=== PATIENT | female | born 1955 | race Caucasian/White ===

== ENCOUNTER 2017-07-15 06:39 | Inpatient (IN) | payer OTHER ==
[2017-07-15] MEDS ORDERED: HEPARIN 1000 UNITS/NS (A-LINE) 0 ML (06:58)
[2017-07-15] MEDS ORDERED: MIDAZOLAM 1 MG/ML 2 ML INJ (07:45)
[2017-07-15] MEDS ORDERED: PHENYLephrine (100 MCG/ML) 5ML SYG (07:56)
[2017-07-15] MEDS: HEPARIN 1000 UNITS/ML 10 ML INJ (08:52)
[2017-07-15] MEDS: BUPIVACAINE 0.5%/EPI (SDV) 30 ML INJ (08:52)
[2017-07-15] MEDS: THROMBIN 5000 UNIT VIAL (08:53)
[2017-07-15] MEDS: GELATIN SIZE 100 SPONGE (08:53)
[2017-07-15] MEDS: CEFAZOLIN 1 GM INJ (08:54)
[2017-07-15] MEDS: HEMOSTATIC MATRIX SYG ZFS (08:54)
[2017-07-15] MEDS ORDERED: METOCLOPRAMIDE 10 MG INJ IV (13:00)
[2017-07-15] MEDS ORDERED: HYDROmorphONE (0.2 MG/ML) 10ML SYG IV ×2 (13:00→17:09)
[2017-07-15] MEDS ORDERED: DIPHENHYDRAMINE 50 MG INJ IV (13:00)
[2017-07-15] MEDS ORDERED: FENTAnyl 50 MCG/ML VIAL IV (13:00)
[2017-07-15] MEDS ORDERED: FUROSEMIDE 20 MG INJ (14:45)
[2017-07-15] MEDS ORDERED: morphine 10 MG INJ (16:07)
[2017-07-15] MEDS ORDERED: ROCURONIUM 50 MG INJ (16:09)
[2017-07-15] MEDS: VANCOMYCIN 1 GM INJ (16:09)
[2017-07-15] MEDS ORDERED: PROPOFOL 20 ML (16:09)
[2017-07-15] MEDS ORDERED: LIDOCAINE 2% (SDV) 5 ML INJ (16:09)
[2017-07-15] MEDS: POLYMYXIN/BACITRACIN 1L IRRIG (16:09)
[2017-07-15] MEDS ORDERED: NEOSTIGMINE 3 MG/3 ML SYRINGE (16:10)
[2017-07-15] MEDS ORDERED: GLYCOPYRROLATE 0.4 MG INJ (16:10)
[2017-07-15] MEDS ORDERED: CEFAZOLIN 1 GM INJ (16:10)
[2017-07-15] MEDS ORDERED: ONDANSETRON 4 MG INJ ×2 (16:35→17:09)
[2017-07-15] MEDS ORDERED: FENTAnyl 50 MCG/ML VIAL (17:08)
[2017-07-15] MEDS ORDERED: MEPERIDINE 25 MG INJ (17:09)
[2017-07-15] MEDS: MEPERIDINE 25 MG INJ IV (17:22)
[2017-07-15] MEDS: ONDANSETRON 4 MG INJ IV (17:23)
[2017-07-15] MEDS: HYDROmorphONE (0.2 MG/ML) 10ML SYG IV ×4 (17:24→17:47)
[2017-07-15] MEDS ORDERED: HYDROmorphONE 0.2 MG/ML PCA (17:42)
[2017-07-15] MEDS ORDERED: HYDROCODONE/APAP (5/325) TAB PO (18:00)
[2017-07-15] MEDS ORDERED: NACL 0.9% 3 ML SYG IV (18:00)
[2017-07-15] MEDS ORDERED: NALOXONE (0.4 MG/ML) INJ IV (18:00)
[2017-07-15] MEDS ORDERED: ONDANSETRON 4 MG INJ IV (18:00)
[2017-07-15] MEDS ORDERED: PROCHLORPERAZINE 10 MG TAB PO (18:00)
[2017-07-15] MEDS ORDERED: ACETAMINOPHEN 325 MG TAB PO (18:00)
[2017-07-15] MEDS ORDERED: CEFAZOLIN 1 GM/50 ML (PMX) 50 ML IVPB (18:03)
[2017-07-15] MEDS: CEFAZOLIN 1 GM/50 ML (PMX) 50 ML IVPB ×2 (18:06→23:57)
[2017-07-15] MEDS: HYDROmorphONE 0.2 MG/ML PCA IV (18:18)
[2017-07-15] MEDS ORDERED: CYANOCOBALAMIN 1000 MCG INJ IM (19:00)
[2017-07-15] MEDS ORDERED: VITAMIN A & D 5 GM OINT PACKET TOP (19:45)
[2017-07-15] MEDS: FAMOTIDINE 20 MG TAB PO (21:42)
[2017-07-15] MEDS: ZOLPIDEM 5 MG TAB PO (22:59)
[2017-07-16] MEDS: ZOLPIDEM 5 MG TAB PO ×2 (00:14→20:26)
[2017-07-16] MEDS: CEFAZOLIN 1 GM/50 ML (PMX) 50 ML IVPB ×2 (05:07→11:59)
[2017-07-16] MEDS: CYANOCOBALAMIN 1000 MCG INJ IM (05:08)
[2017-07-16 05:31] LABS: HEMATOCRIT 30.8 % (37.0-47.0); HEMOGLOBIN 10.4 g/dl (12.0-16.0)
[2017-07-16 06:06] LABS: ANION GAP 14 (8-16); BLOOD UREA NITROGEN 23 mg/dl (7-20); CALCIUM 8.4 mg/dl (8.4-10.2); CARBON DIOXIDE 23 mmol/L (21-31); CHLORIDE 102 mmol/L (97-110); GLUCOSE 113 mg/dl (70-220); POTASSIUM 4.9 mmol/L (3.5-5.1); SODIUM 134 mmol/L (135-144)
[2017-07-16 06:21] LABS: HEPATITIS B SURFACE ANTIGEN NEGATIVE (NEGATIVE)
[2017-07-16] MEDS ORDERED: LACTATED RINGER'S 500 ML IV (06:30)
[2017-07-16] MEDS: LACTATED RINGER'S 500 ML IV ×2 (06:33→14:15)
[2017-07-16 06:38] LABS: HEPATITIS C VIRAL ANTIBODY NEGATIVE (NEGATIVE)
[2017-07-16] MEDS: HYDROmorphONE 0.2 MG/ML PCA IV (08:27)
[2017-07-16] MEDS: FOLIC ACID 1 MG TAB PO (09:19)
[2017-07-16] MEDS: PAROXETINE 10 MG TAB PO (09:19)
[2017-07-16] MEDS: FAMOTIDINE 20 MG TAB PO ×2 (09:19→20:25)
[2017-07-16] MEDS ORDERED: HYDROmorphONE 2 MG TAB PO (18:00)
[2017-07-16] MEDS: LACTATED RINGER'S 250 ML IV (19:34)
[2017-07-16] MEDS: RANITIDINE 150 MG TAB PO (20:25)
[2017-07-16] MEDS: HYDROmorphONE 2 MG TAB PO (20:28)
[2017-07-16] MEDS: morphine 2 MG INJ IV (22:41)
[2017-07-16] MEDS ORDERED: VITAMIN A & D 5 GM OINT PACKET TOP (23:03)
[2017-07-17] MEDS: HYDROmorphONE 2 MG TAB PO (02:25)
[2017-07-17] MEDS: morphine 4 MG/ML VIAL IV (03:30)
[2017-07-17 05:12] LABS: ADD MAN DIFF? NO
[2017-07-17 05:17] LABS: BASOPHILS % 0.2 % (0.0-2.0); HEMATOCRIT 26.1 % (37.0-47.0); HEMOGLOBIN 8.9 g/dl (12.0-16.0); LYMPHOCYTES # 0.6 10^3/ul (0.8-2.9); LYMPHOCYTES % 5.6 % (15.0-51.0); MEAN CORPUSCULAR HEMOGLOBIN 34.9 pg (29.0-33.0); MEAN CORPUSCULAR HGB CONC 34.1 g/dl (32.0-37.0); MEAN CORPUSCULAR VOLUME 102.4 fl (82.0-101.0); MEAN PLATELET VOLUME 10.6 fl (7.4-10.4); MONOCYTE # 1.3 10^3/ul (0.3-0.9); NEUTROPHILS % 81.6 % (39.0-77.0); PLATELET COUNT 160 10^3/UL (140-415); RED BLOOD COUNT 2.55 10^6/ul (4.20-5.40); RED CELL DISTRIBUTION WIDTH 12.8 % (11.5-14.5)
[2017-07-17 05:53] LABS: ALANINE AMINOTRANSFERASE 64 IU/L (13-69); ALBUMIN 2.7 g/dl (3.3-4.9); ALBUMIN/GLOBULIN RATIO 1.17; ALKALINE PHOSPHATASE 102 IU/L (42-121); ANION GAP 8 (8-16); ASPARTATE AMINO TRANSFERASE 113 IU/L (15-46); BILIRUBIN,INDIRECT 0.2 mg/dl (0-1.1); BILIRUBIN,TOTAL 0.2 mg/dl (0.2-1.3); BLOOD UREA NITROGEN 17 mg/dl (7-20); CALCIUM 8.3 mg/dl (8.4-10.2); CARBON DIOXIDE 27 mmol/L (21-31); CHLORIDE 107 mmol/L (97-110); CREATININE 0.97 mg/dl (0.44-1.00); GLUCOSE 119 mg/dl (70-220); POTASSIUM 4.1 mmol/L (3.5-5.1); SODIUM 138 mmol/L (135-144)
[2017-07-17 06:58] LABS: POSITIVE DIFF @See below
[2017-07-17] MEDS: PAROXETINE 10 MG TAB PO (08:59)
[2017-07-17] MEDS: CYANOCOBALAMIN 1000 MCG INJ IM (08:59)
[2017-07-17] MEDS: FOLIC ACID 1 MG TAB PO (08:59)
[2017-07-17] MEDS: RANITIDINE 150 MG TAB PO ×2 (08:59→20:06)
[2017-07-17] MEDS: FAMOTIDINE 20 MG TAB PO ×2 (08:59→20:06)
[2017-07-17] MEDS: HYDROCODONE/APAP (5/325) TAB PO ×2 (11:46→20:06)
[2017-07-17] MEDS: ZOLPIDEM 5 MG TAB PO (20:54)
[2017-07-18] MEDS: ZOLPIDEM 5 MG TAB PO (03:09)
[2017-07-18] MEDS: CYANOCOBALAMIN 1000 MCG INJ IM (09:00)
[2017-07-18] MEDS: RANITIDINE 150 MG TAB PO (09:03)
[2017-07-18] MEDS: FOLIC ACID 1 MG TAB PO (09:03)
[2017-07-18] MEDS: PAROXETINE 10 MG TAB PO (09:03)
[2017-07-18] MEDS: FAMOTIDINE 20 MG TAB PO (09:03)
[2017-07-18] MEDS: HYDROCODONE/APAP (5/325) TAB PO ×2 (09:06→15:50)
[2017-07-18] MEDS: SOD FERRIC GLUC COMPLX 125 MG in SOD CHLORIDE 0.9% 100 ML IVPB (13:37)
== END 2017-07-18 17:34 | DRG 454 ==
LOC: REC 06:39 → MS1 19:30
PROC: 0SG10A0 Fusion of 2 or more Lumbar Vertebral Joints with Interbody Fusion Device, Anterior Approach, Anterior Column, Open Approach (ICD-10-PCS; principal; 2017-07-15 07:30)
PROC: 0SG10J1 Fusion of 2 or more Lumbar Vertebral Joints with Synthetic Substitute, Posterior Approach, Posterior Column, Open Approach (ICD-10-PCS; 2017-07-15 07:30)
PROC: 0QB00ZZ Excision of Lumbar Vertebra, Open Approach (ICD-10-PCS; 2017-07-15 07:30)
PROC: 4A11X4G Monitoring of Peripheral Nervous Electrical Activity, Intraoperative, External Approach (ICD-10-PCS; 2017-07-15 07:30)
DX: M51.36 Other intervertebral disc degeneration, lumbar region (principal); N17.9 Acute kidney failure, unspecified; E66.9 Obesity, unspecified; N73.6 Female pelvic peritoneal adhesions (postinfective); M48.061 Spinal stenosis, lumbar region without neurogenic claudication; M43.16 Spondylolisthesis, lumbar region; Z68.29 Body mass index [BMI] 29.0-29.9, adult
CPT/HCPCS: 72100; 80048; 80053; 85014; 85018; 85025; 86803; 86850; 86900; 86901; 86920; 87086; 87340; 88304; 97110; 97116; 97163; 97530; J1940

== ENCOUNTER 2017-07-18 18:08 | Inpatient (IN) | payer OTHER ==
[2017-07-18] MEDS ORDERED: ACETAMINOPHEN 325 MG TAB PO (19:30)
[2017-07-18] MEDS ORDERED: HYDROmorphONE 2 MG TAB PO (19:30)
[2017-07-18] MEDS ORDERED: morphine 2 MG INJ IV (19:30)
[2017-07-18] MEDS: FAMOTIDINE 20 MG TAB PO (21:00)
[2017-07-18] MEDS: HYDROCODONE/APAP (5/325) TAB PO (21:29)
[2017-07-18] MEDS: RANITIDINE 150 MG TAB PO (21:31)
[2017-07-18] MEDS: ZOLPIDEM 5 MG TAB PO (22:10)
[2017-07-18] MEDS ORDERED: BISACODYL 10 MG SUPP PR (23:00)
[2017-07-18] MEDS ORDERED: MAGNESIUM HYDROXIDE 30ML CUP PO (23:00)
[2017-07-19 00:35] LABS: ADD UMIC YES; UR ASCORBIC ACID NEGATIVE (NEGATIVE); UR BILIRUBIN (Dip) NEGATIVE (NEGATIVE); UR BLOOD (Dip) NEGATIVE (NEGATIVE); UR CLARITY CLEAR (CLEAR); UR COLOR YELLOW (YELLOW); UR GLUCOSE (Dip) NEGATIVE (NEGATIVE); UR KETONES (Dip) NEGATIVE (NEGATIVE); UR LEUKOCYTE ESTERASE (Dip) TRACE Leu/ul (NEGATIVE); UR NITRITE (Dip) NEGATIVE (NEGATIVE); UR RBC 2 /HPF (0-5); UR SPECIFIC GRAVITY (Dip) 1.005 (1.003-1.030); UR TOTAL PROTEIN (Dip) NEGATIVE (NEGATIVE); UR UROBILINOGEN (Dip) NEGATIVE (NEGATIVE); UR WBC 2 /HPF (0-5)
[2017-07-19] MEDS: HYDROCODONE/APAP (5/325) TAB PO ×4 (02:02→20:25)
[2017-07-19] MEDS: HYDROmorphONE 2 MG TAB PO (04:21)
[2017-07-19 08:17] LABS: ADD MAN DIFF? NO
[2017-07-19 08:21] LABS: BASOPHILS % 0.3 % (0.0-2.0); EOSINOPHILS # 0.1 10^3/ul (0.0-0.5); EOSINOPHILS % 1.3 % (0.0-7.0); HEMATOCRIT 27.3 % (37.0-47.0); LYMPHOCYTES # 1.1 10^3/ul (0.8-2.9); LYMPHOCYTES % 15.2 % (15.0-51.0); MEAN CORPUSCULAR HEMOGLOBIN 34.2 pg (29.0-33.0); MEAN CORPUSCULAR VOLUME 103.8 fl (82.0-101.0); MEAN PLATELET VOLUME 10.2 fl (7.4-10.4); MONOCYTE # 0.7 10^3/ul (0.3-0.9); MONOCYTES % 10.4 % (0.0-11.0); NEUTROPHIL # 5.2 10^3/ul (1.6-7.5); NEUTROPHILS % 72.2 % (39.0-77.0); PLATELET COUNT 233 10^3/UL (140-415); RED BLOOD COUNT 2.63 10^6/ul (4.20-5.40); RED CELL DISTRIBUTION WIDTH 13.2 % (11.5-14.5)
[2017-07-19 08:21] LABS: WHITE BLOOD COUNT 7.1 10^3/ul (4.8-10.8)
[2017-07-19 08:47] LABS: ALANINE AMINOTRANSFERASE 53 IU/L (13-69); ALBUMIN 2.9 g/dl (3.3-4.9); ALBUMIN/GLOBULIN RATIO 1.11; ALKALINE PHOSPHATASE 144 IU/L (42-121); ANION GAP 11 (8-16); ASPARTATE AMINO TRANSFERASE 73 IU/L (15-46); BILIRUBIN,INDIRECT 0.5 mg/dl (0-1.1); BILIRUBIN,TOTAL 0.5 mg/dl (0.2-1.3); BLOOD UREA NITROGEN 8 mg/dl (7-20); CALCIUM 7.9 mg/dl (8.4-10.2); CARBON DIOXIDE 29 mmol/L (21-31); CHLORIDE 105 mmol/L (97-110); CREATININE 0.59 mg/dl (0.44-1.00); GLUCOSE 95 mg/dl (70-220); SODIUM 142 mmol/L (135-144); TOTAL PROTEIN 5.5 g/dl (6.1-8.1)
[2017-07-19] MEDS: FOLIC ACID 1 MG TAB PO (09:38)
[2017-07-19] MEDS: RANITIDINE 150 MG TAB PO (09:38)
[2017-07-19] MEDS: FAMOTIDINE 20 MG TAB PO ×2 (09:38→20:25)
[2017-07-19] MEDS: PAROXETINE 10 MG TAB PO (09:38)
[2017-07-19] MEDS: DOCUSATE SODIUM 100 MG CAP PO ×2 (09:38→20:25)
[2017-07-19 13:38] LABS: IRON 27 ug/dl (35-150)
[2017-07-19 13:47] LABS: % IRON SATURATION 12 % SAT (22-52); TOTAL IRON BINDING CAPACITY 229 ug/dl (241-421)
[2017-07-19] MEDS: POTASSIUM CHLORIDE (SR) 20 MEQ TAB PO ×3 (13:50→20:26)
[2017-07-19] MEDS: LACTULOSE 30ML CUP PO (16:31)
[2017-07-19] MEDS: ZOLPIDEM 5 MG TAB PO (20:25)
[2017-07-19] MEDS: SENNA TAB PO (20:26)
[2017-07-20] MEDS: HYDROCODONE/APAP (5/325) TAB PO ×2 (02:16→06:17)
[2017-07-20] MEDS: ZOLPIDEM 5 MG TAB PO ×2 (02:16→21:27)
[2017-07-20 08:11] LABS: ADD MAN DIFF? NO
[2017-07-20 08:16] LABS: BASOPHILS % 0.4 % (0.0-2.0); EOSINOPHILS # 0.1 10^3/ul (0.0-0.5); EOSINOPHILS % 1.3 % (0.0-7.0); HEMOGLOBIN 8.6 g/dl (12.0-16.0); LYMPHOCYTES # 1.1 10^3/ul (0.8-2.9); LYMPHOCYTES % 15.2 % (15.0-51.0); MEAN CORPUSCULAR HEMOGLOBIN 34.1 pg (29.0-33.0); MEAN CORPUSCULAR HGB CONC 33.1 g/dl (32.0-37.0); MEAN CORPUSCULAR VOLUME 103.2 fl (82.0-101.0); MONOCYTE # 0.9 10^3/ul (0.3-0.9); MONOCYTES % 12.4 % (0.0-11.0); NEUTROPHIL # 4.8 10^3/ul (1.6-7.5); NEUTROPHILS % 68.9 % (39.0-77.0); PLATELET COUNT 246 10^3/UL (140-415); RED BLOOD COUNT 2.52 10^6/ul (4.20-5.40); RED CELL DISTRIBUTION WIDTH 13.4 % (11.5-14.5)
[2017-07-20] MEDS: FAMOTIDINE 20 MG TAB PO ×2 (08:16→20:56)
[2017-07-20] MEDS: HYDROmorphONE 2 MG TAB PO ×5 (08:16→21:02)
[2017-07-20] MEDS: FOLIC ACID 1 MG TAB PO (08:16)
[2017-07-20 08:37] LABS: ALANINE AMINOTRANSFERASE 51 IU/L (13-69); ALBUMIN 2.7 g/dl (3.3-4.9); ALBUMIN/GLOBULIN RATIO 0.96; ALKALINE PHOSPHATASE 157 IU/L (42-121); ANION GAP 8 (8-16); ASPARTATE AMINO TRANSFERASE 52 IU/L (15-46); BILIRUBIN,INDIRECT 0.2 mg/dl (0-1.1); BILIRUBIN,TOTAL 0.2 mg/dl (0.2-1.3); BLOOD UREA NITROGEN 7 mg/dl (7-20); CALCIUM 8.4 mg/dl (8.4-10.2); CARBON DIOXIDE 29 mmol/L (21-31); CHLORIDE 107 mmol/L (97-110); CREATININE 0.59 mg/dl (0.44-1.00); GLUCOSE 99 mg/dl (70-220); POTASSIUM 4.2 mmol/L (3.5-5.1); SODIUM 140 mmol/L (135-144); TOTAL PROTEIN 5.5 g/dl (6.1-8.1)
[2017-07-20] MEDS: DOCUSATE SODIUM 100 MG CAP PO ×2 (09:02→20:56)
[2017-07-20] MEDS: PAROXETINE 10 MG TAB PO (09:03)
[2017-07-20] MEDS ORDERED: ONDANSETRON (ODT) 4 MG TAB ODT (15:00)
[2017-07-20] MEDS: PROCHLORPERAZINE 10 MG TAB PO (15:04)
[2017-07-20] MEDS: FERROUS FUMARATE (SR) TAB PO (20:56)
[2017-07-20] MEDS: SENNA TAB PO (20:56)
[2017-07-21] MEDS: HYDROmorphONE 2 MG TAB PO ×3 (00:31→21:08)
[2017-07-21] MEDS: FERROUS FUMARATE (SR) TAB PO ×2 (08:54→21:08)
[2017-07-21] MEDS: FAMOTIDINE 20 MG TAB PO ×2 (08:54→21:08)
[2017-07-21] MEDS: PROCHLORPERAZINE 10 MG TAB PO (08:54)
[2017-07-21] MEDS: DOCUSATE SODIUM 100 MG CAP PO ×2 (08:54→21:08)
[2017-07-21] MEDS: FOLIC ACID 1 MG TAB PO (08:54)
[2017-07-21] MEDS: HYDROCODONE/APAP (5/325) TAB PO (08:55)
[2017-07-21] MEDS: PAROXETINE 10 MG TAB PO (09:02)
[2017-07-21] MEDS ORDERED: VITAMIN A & D 5 GM OINT PACKET TOP (15:15)
[2017-07-21] MEDS: ZOLPIDEM 5 MG TAB PO (21:08)
[2017-07-21] MEDS: SENNA TAB PO (21:08)
[2017-07-22] MEDS: HYDROmorphONE 2 MG TAB PO ×2 (01:41→05:19)
[2017-07-22] MEDS: PAROXETINE 10 MG TAB PO (09:45)
[2017-07-22] MEDS: FERROUS FUMARATE (SR) TAB PO ×2 (09:45→20:01)
[2017-07-22] MEDS: DOCUSATE SODIUM 100 MG CAP PO ×2 (09:45→20:06)
[2017-07-22] MEDS: FAMOTIDINE 20 MG TAB PO ×2 (09:45→20:01)
[2017-07-22] MEDS: FOLIC ACID 1 MG TAB PO (09:45)
[2017-07-22] MEDS: HYDROCODONE/APAP (5/325) TAB PO ×3 (09:45→23:57)
[2017-07-22] MEDS: ZOLPIDEM 5 MG TAB PO (20:01)
[2017-07-22] MEDS: SENNA TAB PO (20:06)
[2017-07-23] MEDS: HYDROCODONE/APAP (5/325) TAB PO (03:54)
[2017-07-23] MEDS: PAROXETINE 10 MG TAB PO (08:21)
[2017-07-23] MEDS: DOCUSATE SODIUM 100 MG CAP PO (08:21)
[2017-07-23] MEDS: FOLIC ACID 1 MG TAB PO (08:21)
[2017-07-23] MEDS: FERROUS FUMARATE (SR) TAB PO (08:21)
[2017-07-23] MEDS: FAMOTIDINE 20 MG TAB PO (08:21)
== END 2017-07-23 14:00 | disposition home health service (06) | DRG 560 ==
LOC: VRC 18:08
PROC: F07Z9FZ Gait Training/Functional Ambulation Treatment using Assistive, Adaptive, Supportive or Protective Equipment (ICD-10-PCS; principal; 2017-07-18)
PROC: F07Z8FZ Transfer Training Treatment using Assistive, Adaptive, Supportive or Protective Equipment (ICD-10-PCS; 2017-07-18)
PROC: F07Z5FZ Bed Mobility Treatment using Assistive, Adaptive, Supportive or Protective Equipment (ICD-10-PCS; 2017-07-18)
PROC: F08Z2FZ Grooming/Personal Hygiene Treatment using Assistive, Adaptive, Supportive or Protective Equipment (ICD-10-PCS; 2017-07-18)
PROC: F08Z0FZ Bathing/Showering Techniques Treatment using Assistive, Adaptive, Supportive or Protective Equipment (ICD-10-PCS; 2017-07-18)
PROC: F08Z1FZ Dressing Techniques Treatment using Assistive, Adaptive, Supportive or Protective Equipment (ICD-10-PCS; 2017-07-18)
DX: Z47.89 Encounter for other orthopedic aftercare (principal); D62 Acute posthemorrhagic anemia; G89.29 Other chronic pain; Z98.1 Arthrodesis status; E53.8 Deficiency of other specified B group vitamins; E87.6 Hypokalemia; R10.9 Unspecified abdominal pain; R11.2 Nausea with vomiting, unspecified; K59.00 Constipation, unspecified; N28.9 Disorder of kidney and ureter, unspecified; Z98.84 Bariatric surgery status
CPT/HCPCS: 74019; 80053; 81001; 82607; 82728; 83540; 85025; 87081; 87086; 97110; 97116; 97150; 97163; 97167; 97530; 97535